=== PATIENT | male | born 1955 | race Caucasian/White ===

== ENCOUNTER → 2018-10-18 | Emergency (ER) | payer MEDICARE, OTHER | END | disposition home or self-care (01) | LOC: FTE 04:36 | DX: T14.90XA Injury, unspecified, initial encounter (principal); I10 Essential (primary) hypertension; W57.XXXA Bitten or stung by nonvenomous insect and other nonvenomous arthropods, initial encounter; Y92.9 Unspecified place or not applicable | CPT/HCPCS: 99282 ==